=== PATIENT | female | born 1955 | race Caucasian/White ===

== ENCOUNTER 2023-11-18 16:43 | Emergency (ER) | payer MEDICARE ==
[~2023-11-18] VITALS: Ht 157.5 cm; Wt 60.0 kg
[2023-11-18 16:56] VITALS: BP 127/105
[2023-11-18 16:57] VITALS: BP 134/71
[2023-11-18] MEDS ORDERED: DEXAMETHASONE SOD. PHOSPHATE 10 MG/ML VIAL IV ONE (17:00)
[2023-11-18] MEDS ORDERED: ORPHENADRINE CITRATE 30 MG/ML AMP IV ONE (17:00)
[2023-11-18] MEDS ORDERED: KETOROLAC TROMETHAMINE 30 MG/ML SDV IV ONE (17:00)
[2023-11-18 17:01] VITALS: BP 127/53
[2023-11-18] MEDS ORDERED: CARVEDILOL12.5 MG PO (17:12)
[2023-11-18] MEDS ORDERED: TRAZODONE100 MG PO (17:14)
[2023-11-18] MEDS ORDERED: LOMOTIL2.5 MG PO (17:14)
[2023-11-18 17:15] VITALS: BP 119/59
[2023-11-18] MEDS ORDERED: METHOCARBAMOL500 MG PO (18:49)
[2023-11-18] MEDS ORDERED: PREDNISONE20 MG PO (18:49)
[2023-11-18] MEDS ORDERED: NAPROXEN500 MG PO (18:49)
[2023-11-18 18:53] VITALS: BP 119/59
== END 2023-11-18 19:00 | disposition home or self-care (01) ==
LOC: ED 16:43
DX: M43.6 Torticollis (principal); I10 Essential (primary) hypertension